=== PATIENT | male | born 1960 | race African-American/Black ===

== ENCOUNTER → 2019-06-18 | Outpatient (CLI) | payer MEDICARE ==
[2015-10-14 13:30] VITALS: BP 154/83
--- NOTE | 2019-06-18 13:01 | KCIC ---
MRI Lumbar Spine without contrast History: Low back pain Technique: Multiplanar, multi sequential noncontrast MR imaging was performed of the lumbar spine. Comparison: CT lumbar spine exam May 18, 2009 Findings: There is motion degradation. Lumbar vertebral body stature is maintained. There is very minimal grade 1 anterior spondylolisthesis at L4-5. There is again mild degenerative disc disease greater posteriorly at L5-S1, very minimally L4-5. Conus terminates at the superior aspect of L1. There is no significant marrow edema. There is nonspecific edema of the posterior subcutaneous fat of the lower back. L1-L2: Spinal canal and neural foramina are adequate. L2-L3: Neural foramina and spinal canal are adequate. There is mild buckling of the ligamentum flavum. L3-L4: There is mild prominence of posterior epidural fat and buckling of the ligamentum flavum. There is negligible disc osteophyte complex. There is very mild narrowing of the inferior neural foramina greater on the left. Spinal canal is adequate. L4-L5: There is moderate right facet degenerative change, minimally on the left. There is minimal buckling of the ligamentum flavum. There is negligible disc osteophyte complex. Spinal canal is adequate. There is [id number] neural foramina compromise bilaterally part from disc osteophyte complex near the undersurfaces exiting L4 nerve roots without significant displacement. L5-S1: There is minimal disc osteophyte complex, near the descending S1 nerve roots bilaterally without displacement. There is mild frontal epidural fat on recesses bilaterally, limited preserved central subarachnoid space. There is mild facet hypertrophic change greater on the left. There is mild neural foramina compromise bilaterally in part from disc osteophyte complex inferiorly. Impression: 1. There is no significant lumbar spinal stenosis, disc osteophyte complex near the ventral surfaces of the descending S1 nerve roots at L5-S1 without displacement. 2. There is mild degenerative disc disease at L5-S1, to a lesser degree at L4-5. 3. There is negligible anterior spondylolisthesis at L4-5. There is multilevel facet degenerative change. 4. There is mild to moderate L4-5 neural foramina compromise bilaterally, to a lesser degree bilaterally at L5-S1. Electronically signed by: Paul Brand MD (06/18/2019 12:58 PM) [id number]
== END | disposition home or self-care (01) ==
LOC: KCIC MRI 11:47
PROVIDERS: ATTEND Nurse Practitioner Gerontology
DX: M51.37 Other intervertebral disc degeneration, lumbosacral region (principal); M43.16 Spondylolisthesis, lumbar region; M48.061 Spinal stenosis, lumbar region without neurogenic claudication; M89.38 Hypertrophy of bone, other site
CPT/HCPCS: 72148

== ENCOUNTER → 2019-08-12 | Outpatient (CLI) | payer MEDICARE, OTHER ==
[2015-10-14 13:30] VITALS: BP 154/83
[~2019-08-12] MED LIST: AMLO10TA8 PO; ASPI81TA50 PO; BECL10.62 IH; DILT120C99 PO; GABA300C18 PO; LOSA1TAB25 PO; NAPR-514 PO; OXYC1TAB19 PO; PRAV20TA2 PO; TAMS0.4C97 PO
--- NOTE | 2019-08-12 21:13 | PAIN ---
DATE OF SERVICE: 08/12/2019 INITIAL CONSULTATION FOR PAIN CLINIC CHIEF COMPLAINT: Low back and right lower extremity pain. HISTORY OF PRESENT ILLNESS: This is a 59-year-old male who presents with history of pain since 1998, gradually increasing, not a result of any specific injury or action he is aware of. He relates diving off of a high diagonal pool and having some significant pain in his back for about 2 months after that. The pain resolved after that time, but now is very similar in the low back radiating to the right posterior gluteus, posterolateral thigh, lateral anterior thigh, medial thigh, and into the posterior calf on the right. The patient reports it is worse with walking, standing, changing positions, better with sitting or lying down, but does awake him from sleep about twice a night. The patient reports it does not affect his bowel or bladder control, but does affect his ability to walk. He uses a cane, which he has with him using in his right hand. The patient reports the pain is constant, described as throbbing, shooting, aching across the low back, radiating to the right leg. The patient rates his disability rating from 0-10, 10 being the worst, as an 8 with family home responsibilities, 10 with recreation and occupational activities, 9 with social activity, sexual behavior, self-care and life support activities. The patient has had MRI scan of the lumbar spine showing mild degenerative disk disease at L5-S1, lesser degree at L4-L5 with negligible spondylolisthesis at L4-L5, multilevel facet degenerative change, and mild to moderate L4-L5 neural foraminal compromise bilaterally to a lesser degree bilaterally at L5-S1. The patient reports no loss of function, but significant fatigability, especially the right leg with activity, better with sitting. The patient reports he has had physical therapy in the past, but it is in 2017, also chiropractic treatment, both of which helped fairly significantly at that time, but nothing recently. The patient has been taking oxycodone as well as gabapentin and naproxen, all of which do decrease the pain fairly significantly. PAST MEDICAL HISTORY: Significant for hypertension, arthritis, depression, eczema and asthma. PREVIOUS SURGERY: Include tonsillectomy as a child. CURRENT MEDICATIONS: Include diltiazem, losartan, pravastatin, Percocet, naproxen, daily baby aspirin, beclomethasone inhaler, tamsulosin and gabapentin. ALLERGIES: The patient has no known drug allergies. FAMILY HISTORY: Significant for no major medical conditions or history that he lists. SOCIAL HISTORY: The patient does not drink alcohol, does not smoke, does not use any illegal, illicit or recreational drugs. He is single, lives locally in [place], [place] and reports he is currently on disability related to his current pain situation. REVIEW OF SYSTEMS: The patient's review of systems is positive for those items mentioned in history of present illness. All systems reviewed and otherwise negative. It is complete, full and well documented on the patient's chart. PHYSICAL EXAMINATION: VITAL SIGNS: The patient's blood pressure is 143/90, pulse is 93, respirations 16, temperature 98.1 degrees Fahrenheit, height is 5 feet 9 inches, weight is 273 pounds. GENERAL: The patient is awake, alert, oriented, appropriate, very pleasant demeanor. HEENT: Head shows normocephalic, atraumatic. Extraocular movements are intact and symmetrical. Oral cavity shows mucous membranes moist and pink. Dentition is intact. NECK: Shows anterior throat supple without palpable lymphadenopathy noted. Swallow reflex symmetrical. CHEST: Shows normal on inspection. Breath sounds are clear bilaterally. HEART: Shows S1, S2 clear. No murmurs auscultated. ABDOMEN: Soft, nontender, nondistended. No palpable organomegaly is noted. No rebound or guarding demonstrated. BACK: Shows spine grossly in the midline. Slight exaggeration of thoracic kyphosis and minor flattening of lumbar lordotic curvature. Lumbar paraspinous muscle shows symmetrical on inspection, on palpation shows some moderate tenderness diffusely bilaterally going diffusely without significant radiation. The patient has good rotational motion of lumbar spine, both laterally greater than 10 degrees right and left as well as extension greater than 10 degrees, forward flexion 45 degrees without significant pain reported. No tenderness over the spinous processes, sacrum or sacroiliac regions. EXTREMITIES: The patient's lower extremities show deep tendon reflexes at 1+ patellar and tendo calcaneus tendons are equal. Motor exam is strong with 5/5 dorsiflexion, extension, quadriceps and hamstring flexion and symmetrical. Peripheral pulses are 1+ posterior tibia. No peripheral edema is noted bilaterally. Lower extremities are warm and dry to touch, equal in color and appearance. Straight leg raise noted to be mildly positive on the right, but only after about 45 degrees and is decreased with knee flexion, left side is negative. Gaenslen's and Hieu's maneuvers are negative bilaterally. The patient is able to stand, stand on his toes without significant difficulty or loss of balance, walks with a slight limping gait, does appear to favor his right lower extremity, slightly and again has a cane and he is using his right hand. The patient's skin shows warm and dry, good turgor. No edema. No sores or rashes throughout. IMPRESSION: 1. This is a 59-year-old male with long history of low back and right lower extremity pain, worse over the past year or so, but present for many years. 2. MRI scan of lumbar spine as noted. 3. History of arthritis. 4. Hypertension. 5. Asthma. PLAN: Options were discussed with the patient including conservative medical managements, physical therapies and interventional techniques. He would like to pursue most conservative measures. We discussed physical therapy with lumbar traction and he would like to pursue this. We also discussed possible interventional techniques. He is quite apprehensive about trying any interventional procedures at this time. We will try physical therapy with traction first. If not significantly improved, we did discuss possible lumbar epidural steroid injection and we will assess this once physical therapy is completed. JOSEPH DE LA CRUZ MD DR: DOMINGUEZ/greta JOB#: [id number] / [id number] PATRICIA Gardner APRN
== END | disposition home or self-care (01) ==
LOC: PNCL 10:56
PROVIDERS: ATTEND Anesthesiology
DX: M54.5 Low back pain (principal); M79.604 Pain in right leg; I10 Essential (primary) hypertension; J45.909 Unspecified asthma, uncomplicated; M19.90 Unspecified osteoarthritis, unspecified site; F32.9 Major depressive disorder, single episode, unspecified
CPT/HCPCS: G0463